=== PATIENT | male | born 1985 | race Caucasian/White ===

== ENCOUNTER 2018-09-22 05:16 | Day surgery (SDC) | payer MEDICAID, OTHER ==
[2018-09-22] MEDS ORDERED: LACTATED RINGERS 1,000 ML IV ONE (06:34)
[2018-09-22] MEDS ORDERED: FAMOTIDINE 20 MG/2 ML VIAL ONE (06:35)
[2018-09-22] MEDS ORDERED: LEVALBUTEROL HCL 1.25 MG/3 ML AMPUL.NEB NEB ONE (06:35)
[2018-09-22] MEDS ORDERED: MIDAZOLAM HCL 2 MG/2 ML VIAL ONE (08:48)
[2018-09-22] MEDS ORDERED: LACTATED RINGERS 1,000 ML IV.SOLN IV ONE ×2 (08:48)
[2018-09-22] MEDS ORDERED: GLYCOPYRROLATE 0.2 MG/1 ML 1 ML ONE (08:48)
[2018-09-22] MEDS ORDERED: LIDOCAINE HCL 2% PF 100MG/5ML VIAL IJ ONE (08:48)
[2018-09-22] MEDS ORDERED: PROPOFOL 200 MG/20 ML VIAL IV ONE (08:48)
[2018-09-22] MEDS ORDERED: DEXAMETHASONE SOD PHOS 4 MG/ML VIAL ONE (08:48)
[2018-09-22] MEDS ORDERED: SEVOFLURANE 250 ML LIQUID IH ONE (08:48)
[2018-09-22] MEDS ORDERED: ceFAZolin SODIUM 1 GM VIAL ONE (08:48)
[2018-09-22] MEDS ORDERED: SUGAMMADEX SODIUM 200 MG/2 ML VIAL IV ONE (08:48)
[2018-09-22] MEDS ORDERED: BUPIV. HCL 0.25% (2.5MG/ML)/EPI. (1:200,000) PF 10 ML VIAL IM ONE (08:48)
[2018-09-22] MEDS ORDERED: ROCURONIUM BROMIDE 10 MG/ML 5ML VIAL ONE (08:48)
[2018-09-22] MEDS ORDERED: HYDROmorphone HCL/PF 2 MG/ML VIAL ONE ×2 (08:48→10:53)
[2018-09-22] MEDS ORDERED: THROMBIN (RECOMBINANT) 20,000 UNIT VIAL TP ONE (08:48)
[2018-09-22] MEDS ORDERED: oxyCODONE/ACETAMINOPHEN 5/325 TABLET PO ONE (12:36)
== END 2018-09-22 11:45 ==
LOC: OPSURG 05:16
PROVIDERS: ATTEND Orthopaedic Surgery
DX: M48.062 Spinal stenosis, lumbar region with neurogenic claudication (principal)
CPT/HCPCS: 63030; J0690; J1100; J1170; J2001; J2250; J2704; J3490; J7614; A9270-GY; J7120